=== PATIENT | male | born 1995 | race American Indian/Alaskan Native ===

== ENCOUNTER 2016-12-05 10:48 | Emergency (ER) | payer SELFPAY ==
[2016-12-05 11:55] LABS: Basophils % (Auto) 0.3 % (0.0-1.8); Eosinophils % (Auto) 1.1 % (0.0-4.3); Hematocrit 49.5 % (35.5-45.6); Hemoglobin 16.4 gm/dl (11.8-15.2); Mean Corpuscular HGB Conc 33 % (32-34); Mean Corpuscular Hemoglobin 29 pg (28-32); Mean Corpuscular Volume 87 fl (84-94); Platelet Count 170 K/mm3 (140-440); Red Blood Count 5.69 M/mm3 (3.65-5.03); Red Cell Distribution Width 13.5 % (13.2-15.2); White Blood Count 5.3 K/mm3 (4.5-11.0)
[2016-12-05 12:06] LABS: Anion Gap 17 mmol/L; Blood Urea Nitrogen 11 mg/dL (9-20); Calcium 8.9 mg/dL (8.4-10.2); Carbon Dioxide 28 mmol/L (22-30); Chloride 97.2 mmol/L (98-107); Glucose 96 mg/dL (75-100); Potassium 3.4 mmol/L (3.6-5.0); Sodium 139 mmol/L (137-145)
[2016-12-05 13:40] VITALS: BP 113/75
[2016-12-05] MEDS ORDERED: LIDOCAINE VISCOUS 2% PO ONE (13:45)
[2016-12-05] MEDS ORDERED: ALUM-MAG HYDROX-SIMETH 200-200-20MG/5ML PO ONE (13:45)
--- NOTE | 2016-12-05 13:50 | Emergency Department Report ---
Vomiting/Diarrhea - [facility] Chief Complaint: Nausea/Vomiting/Diarrhea Stated Complaint: STOMACH/HEADACHE Time Seen by Provider: 12/05/16 13:25 Duration: Today Severity: mild Nausea/Vomiting Severity: Mild Diarrhea Severity: Mild Pain Location: Generalized Pain Severity: Mild Symptoms: Yes Watery Diarrhea, Yes Able to Tolerate Fluids, Yes Recent Unusual Foods, Yes Family w/ Similar Symptoms, No Bloody diarrhea, No Fever, No Rash, No Hematuria, No Recent URI Symptoms ED Review of Systems ROS: Stated complaint: STOMACH/HEADACHE Other details as noted in HPI Constitutional: denies: chills, fever Eyes: denies: eye pain, eye discharge, vision change ENT: denies: ear pain, throat pain Respiratory: denies: cough, shortness of breath, wheezing Cardiovascular: denies: chest pain, palpitations Endocrine: no symptoms reported Gastrointestinal: denies: abdominal pain, nausea, diarrhea Genitourinary: denies: urgency, dysuria Musculoskeletal: denies: back pain, joint swelling, arthralgia Skin: denies: rash, lesions Neurological: denies: headache, weakness, paresthesias Psychiatric: denies: anxiety, depression Hematological/Lymphatic: denies: easy bleeding, easy bruising ED Past Medical Hx - Past Medical History Previous Medical History?: No - Surgical History Past Surgical History?: No - Social History Smoking Status: Never Smoker Substance Use Type: Non Opiate Pain - Medications Home Medications: Home Medications Medication Instructions Recorded Confirmed Last Taken Type Antacid [Alum-Mag Hydrox-Simeth 30 ml PO ONCE #200 oral.liqd 12/05/16 Unknown Rx [id number]] Dicyclomine [Bentyl] 20 mg PO QID #10 tablet 12/05/16 Unknown Rx Vomiting Diarrhea Exam - Exam General: Vital signs noted. No distress. Alert and acting appropriately. HEENT: Yes Moist Mucous Membranes, No Pharyngeal Erythema, No Pharyngeal Exudates, No Rhinorrhea, No Conjuctival Injection, No Frontal Tenderness, No Maxillary Tenderness Neck: No Adenopathy, No Rigidity Lungs: Yes Clear Lung Sounds, Yes Good Air Exchange, No Wheezes, No Stridor, No Cough, No Nasal Flaring, No Retractions, No Use of Accessory Muscles Heart exam: Regular: Yes, Murmur: No, Tachycardia: No Abdomen: Tenderness: No, Peritoneal Signs: No, Distention: No, Hyperactive Bowel sounds: No Skin exam: Rash: No, Edema: No, Normal turgor: Yes Neurologic: Alert and oriented, no deficits. Musculoskeletal: Unremarkable. ED Course Vital Signs 12/05/16 12/05/16 11:23 13:32 Temperature 98.2 F Pulse Rate 64 67 Respiratory 20 16 Rate Blood Pressure 135/78 Blood Pressure 113/75 [Right] O2 Sat by Pulse 100 97 Oximetry ED Medical Decision Making - Lab Data Result diagrams: 12/05/16 11:34 12/05/16 11:34 Critical care attestation.: If time is entered above; I have spent that time in minutes in the direct care of this critically ill patient, excluding procedure time. ED Disposition Clinical Impression: Viral gastroenteritis Disposition: DISCHARGED TO HOME OR SELFCARE Is pt being admited?: No Does the pt Need Aspirin: No Condition: Good Instructions: Gastroenteritis (ED), Acute Nausea and Vomiting (ED) Prescriptions: Antacid [Alum-Mag Hydrox-Simeth [id number]] 30 ml PO ONCE #200 oral.liqd Dicyclomine [Bentyl] 20 mg PO QID #10 tablet Referrals: PRIMARY CARE, [Primary Care Provider] - 3-5 Days Time of Disposition: 13:53
== END 2016-12-05 14:28 | disposition home or self-care (01) ==
LOC: ED 10:48
DX: A08.4 Viral intestinal infection, unspecified (principal)
CPT/HCPCS: 36415; 80048; 85025; 99283